=== PATIENT | male | born 1965 | race Caucasian/White ===

== ENCOUNTER → 2021-07-06 04:56 | Outpatient (CLI) | payer OTHER, SELFPAY ==
[2021-07-06 21:09] LABS: SARS-CoV-2 RNA PCR Positive
== END ==
PROVIDERS: PCP Family Medicine; Visit Provider Family Medicine
DX: R50.9 Fever, unspecified (principal); Z20.822 Contact with and (suspected) exposure to COVID-19
CPT/HCPCS: C9803; U0003; U0005